=== PATIENT | male | born 1940 ===

== ENCOUNTER 2023-11-22 08:46 | Outpatient (CLI) | payer MEDICARE, BC, SELFPAY ==
[2023-11-22 09:10] LABS: Hemoglobin A1C 12.3 % (<5.7)
[2023-11-22 09:28] LABS: Creatinine Urine 124.99 mg/dL (40-278); MALB Creatinine Ratio 11.3 mg/g (0-30); Microalbumin Urine Random 14.2 mg/L
[2023-11-22 10:01] LABS: Alanine Aminotransferase 47 U/L (16-63); Albumin Level 3.8 g/dL (3.4-5.0); Alkaline Phosphatase 111 U/L (46-116); Anion Gap 10 mmol/L (8-16); Aspartate Amino Transferase 32 U/L (15-37); Bilirubin,Total 1.5 mg/dL (0.00-1.00); Blood Urea Nitrogen 11 mg/dL (7-18); Calcium 9.1 mg/dL (8.5-10.1); Carbon Dioxide 28 mmol/L (21-32); Chloride 100 mmol/L (98-108); Cholesterol 145 mg/dL (0-200); Estimated Glomerular Filt Rate > 60; Glucose 204 mg/dL (70-99); HDL Direct 54 mg/dL (40-60); LDL Cholesterol Calculated 55 mg/dL (<130); Osmolality Calculated 291 mOsm/kg (285-295); Potassium 4.3 mmol/L (3.5-5.1); Sodium 138 mmol/L (136-145); Total Protein 7.1 g/dL (6.4-8.2); Triglycerides 180 mg/dL (0-150)
[2023-11-22 10:42] LABS: Thyroid Stimulating Hormone Reflex 8.26 u/IU/mL (0.36-3.74)
[2023-11-22 12:28] LABS: Free T4 Free Thyroxine Reflex 1.12 ng/dL (0.76-1.46)
== END 2023-11-22 08:47 | disposition home or self-care (01) ==
PROVIDERS: PCP Family Medicine; Visit Provider Family Medicine
DX: E11.9 Type 2 diabetes mellitus without complications (principal)
CPT/HCPCS: 36415; 80053; 80061; 82043; 83036; 84439; 84443

== ENCOUNTER 2025-05-13 10:42 | Outpatient (CLI) | payer MEDICARE, BC, SELFPAY ==
[2025-05-13 11:29] LABS: Hemoglobin A1C 7.0 % (<5.7)
[2025-05-13 11:46] LABS: Thyroid Stimulating Hormone Reflex < 0.015 uIU/mL (0.465-4.68)
[2025-05-13 12:14] LABS: Free T4 Free Thyroxine Reflex 1.58 ng/dL (0.78-2.19)
[2025-05-13 13:38] LABS: MALB Creatinine Ratio 12.0 mg/g (0-30)
== END 2025-05-13 10:43 | disposition home or self-care (01) ==
LOC: CHSLAB 10:44
PROVIDERS: PCP Family Medicine; Visit Provider Family Medicine
DX: E03.9 Hypothyroidism, unspecified (principal); E11.9 Type 2 diabetes mellitus without complications
CPT/HCPCS: 36415; 82043; 83036; 84439; 84443; 84480